=== PATIENT | female | born 1945 | race Caucasian/White ===

== ENCOUNTER 2018-01-25 20:15 | Emergency (ER) | payer OTHER ==
[~2018-01-25] VITALS: Ht 162.6 cm; Wt 95.3 kg
[~2018-01-25 20:15] MED LIST: AMLO5TAB PO; CLOP75TA PO; LEVO500T6; LISINOPRIL; SIMV20TA1 PO
[2018-01-25 20:25] VITALS: BP 113/64
--- NOTE | 2018-01-25 20:32 | NUR ---
72/F C/O 06/05 SHARP LEFT LATERAL LEG PAIN, NONTRAUMATIC, DENIES INJURY, STATES " I WOKE UP AND MY LEG STARTED HURTING". REPORTS NUMBNESS AND TINGLING, MINIMAL SWELLING NOTED, NO REDNESS, +PMSC PMH: BLOOD CLOTS, HTN, HLD
--- NOTE | 2018-01-25 20:32 | NUR ---
PT AMBULATED TO ER CHAIR E
--- NOTE | 2018-01-25 21:13 | NUR ---
PT MOVED TO BED 10
[2018-01-25] MEDS ORDERED: KETOROLAC 30 MG/ML VIAL IM ONE (22:05)
--- NOTE | 2018-01-25 22:30 | NUR ---
Patient discharged with v/s stable. Written and verbal after care instructions given and explained. Patient verbalized understanding. Ambulatory with steady gait. All questions addressed prior to discharge. Advised to follow up with PMD.
[2018-01-25 22:34] VITALS: BP 138/76
== END 2018-01-25 22:30 | disposition home or self-care (01) ==
LOC: MED 20:15
DX: I83.92 Asymptomatic varicose veins of left lower extremity (principal); I10 Essential (primary) hypertension; Z79.899 Other long term (current) drug therapy
CPT/HCPCS: 93971; 96372; 99284; J1885; Q0092

== ENCOUNTER 2018-07-17 19:31 | Emergency (ER) | payer MEDICARE, OTHER ==
[~2018-07-17] VITALS: Ht 162.6 cm; Wt 102.1 kg
[~2018-07-17 19:31] MED LIST changes: -LEVO500T6
[2018-07-17 19:59] VITALS: BP 134/90
--- NOTE | 2018-07-17 20:05 | NUR ---
PT AMBULATED TO ER BED 11
--- NOTE | 2018-07-17 20:06 | NUR ---
Report given to Nia LEON.
--- NOTE | 2018-07-17 20:07 | NUR ---
72/F came in c/o lower back pain worsened x 4 days. pt denies recent trauma/injury, denies peripheral numbness/tingling. Pt ambulated with steady gait to bed 11. PMH: arthritis, chronic pain, HTN, HLD
[2018-07-17] MEDS ORDERED: KETOROLAC 60 MG/2 ML VIAL IM ONE (20:25)
--- NOTE | 2018-07-17 22:26 | NUR ---
Patient discharged with v/s stable. Written and verbal after care instructions given and explained. Patient alert, oriented and verbalized understanding of instructions. Ambulatory with steady gait. All questions addressed prior to discharge. ID band removed. Patient advised to follow up with PMD. Rx of ultram given. Patient educated on indication of medication including possible reaction and side effects. Opportunity to ask questions provided and answered.
[2018-07-17 22:31] VITALS: BP 119/73
== END 2018-07-17 22:26 | disposition home or self-care (01) ==
LOC: MED 19:31
DX: M51.36 Other intervertebral disc degeneration, lumbar region (principal); I10 Essential (primary) hypertension; M81.0 Age-related osteoporosis without current pathological fracture; Z79.899 Other long term (current) drug therapy
CPT/HCPCS: 72131; 96372; 99284; J1885

== ENCOUNTER 2019-03-01 08:42 | Emergency (ER) | payer MEDICARE, OTHER ==
[~2019-03-01] VITALS: Ht 162.6 cm; Wt 99.8 kg
[~2019-03-01 08:42] MED LIST changes: -LISINOPRIL
--- NOTE | 2019-03-01 08:48 | NUR ---
PT AMBULATED TO ER BED 08
[2019-03-01 08:50] VITALS: BP 156/78
--- NOTE | 2019-03-01 09:04 | NUR ---
PT BIB SELF C/O PAINFUL RASH X2 WEEKS. PT REPORTS BEING DIAGNOSED WITH SHINGLES AT [place] 2 WEEKS AGO, RECIEVED MEDICATION TO TREAT, PT STATES THAT SHE FINISHED MEDICATION, DOES NOT REMEMBER NAME TO MEDICATION, AND REPORTS SHE IS STILL IN PAIN. BURNING/THROBING PAIN AT 10/10 FROM RASH THAT GOES FROM RT GROIN TO RT FLANK. VSS. ER MD TO SEE PT. MEDHX:SHINGLES, HTN, STENT RX:[id number]
[2019-03-01] MEDS ORDERED: hydrOXYzine HCL 25 MG TAB PO ONE (09:40)
[2019-03-01] MEDS ORDERED: DEXAMETHASONE 10 MG/ML VIAL IM ONE (09:40)
[2019-03-01] MEDS ORDERED: diphenhydrAMINE 50 MG/ML VIAL IM ONE (09:40)
--- NOTE | 2019-03-01 11:15 | NUR ---
Patient discharged with v/s stable. Written and verbal after care instructions given and explained. Patient alert, oriented and verbalized understanding of instructions. Wheel Chair Assisted with to car. All questions addressed prior to discharge. ID band removed. Patient advised to follow up with PMD. Rx of ATARAX, AND DEPAKOTE given. Patient educated on indication of medication including possible reaction and side effects. Opportunity to ask questions provided and answered.
[2019-03-01 11:33] VITALS: BP 137/59
== END 2019-03-01 11:15 | disposition home or self-care (01) ==
LOC: MED 08:42
DX: B02.29 Other postherpetic nervous system involvement (principal); I10 Essential (primary) hypertension; E78.5 Hyperlipidemia, unspecified; Z79.899 Other long term (current) drug therapy
CPT/HCPCS: 96372; 99283; J1100; J1200

== ENCOUNTER 2020-10-19 12:06 | Emergency (ER) | payer MEDICARE, OTHER ==
[~2020-10-19] VITALS: Ht 162.6 cm; Wt 95.3 kg
--- NOTE | 2020-10-19 12:21 | NUR ---
Patient transferred to [facility]. RN evaluating patient at bedside.
[2020-10-19 12:26] VITALS: BP 123/54
--- NOTE | 2020-10-19 12:26 | NUR ---
Dr. Calloway is evaluating the patient at bedside.
--- NOTE | 2020-10-19 12:32 | NUR ---
PT C/O GENERALIZED WEAKNESS, PRODUCTIVE COUGH WITH GREENISH PHLEGM FOR 4 DAYS. PT WAS SEEN IN [facility] AND DX WITH BRONCHITIS. PT HAS BEEN TX WITH AUGMENTIN FOR 4 DAYS. PT STATES NO IMPROVEMENT. OTHERWISE, DENIES FEVER, SOB, CP, N/V/D, OR SICK CONTACT. PMH: HTN
--- NOTE | 2020-10-19 13:34 | NUR ---
Dr. Harrison is evaluating the patient at bedside.
[2020-10-19 13:57] LABS: BASOPHILS # (AUTO) 0.1 K/uL (0.00-0.22); BASOPHILS % (AUTO) 0.8 % (0.0-2.0); EOSINOPHILS # (AUTO) 0.1 K/uL (0-0.4); EOSINOPHILS % (AUTO) 1.7 % (0.0-4.0); HEMATOCRIT 43.9 % (36-48); HEMOGLOBIN 14.6 g/dL (12.0-16.0); LYMPHOCYTES # (AUTO) 1.3 K/uL (2.5-16.5); LYMPHOCYTES % (AUTO) 19.4 % (20.5-51.1); MEAN CORPUSCULAR HEMOGLOBIN 30 pg (27-31); MEAN CORPUSCULAR HGB CONC 33 g/dL (33-37); MEAN CORPUSCULAR VOLUME 91.3 fL (80-94); MONOCYTES # (AUTO) 0.5 K/uL (0.8-1.0); NEUTROPHILS # (AUTO) 4.5 K/uL (1.8-7.7); NEUTROPHILS % (AUTO) 70.1 % (42.2-75.2); PLATELET COUNT (AUTO) 176 K/uL (140-450); RED BLOOD CELL COUNT(AUTO) 4.81 MIL/uL (4.20-5.40); RED CELL DISTRIBUTION WIDTH 13.2 % (11.6-13.7); WHITE BLOOD COUNT (AUTO) 6.5 K/uL (4.8-10.8)
--- NOTE | 2020-10-19 14:00 | NUR ---
COVID JESE & FLU SWAB COLLECTED.
--- NOTE | 2020-10-19 14:00 | NUR ---
Marcus alberto in [facility] - 10/19/20 at 1421 by [facility] DONOVAN SAWANT & MICHAEL LOPEZ.
[2020-10-19 14:42] LABS: PROTHROMBIN TIME 11.5 secs (10.8-13.4)
[2020-10-19 15:07] LABS: ALBUMIN 4.3 g/dL (3.4-5.0); ANION GAP 18.1 (8-16); ASPARTATE AMINOTRANSFERASE 44 U/L (15-37); CARBON DIOXIDE 23.8 mmol/L (21-32); CHLORIDE 104 mmol/L (98-107); CREATININE 0.9 mg/dL (0.6-1.3); GLUCOSE 85 mg/dL (74-106); POTASSIUM 3.9 mmol/L (3.5-5.1); SODIUM SERUM 142 mmol/L (136-145); TOTAL BILIRUBIN 1.5 mg/dL (0.0-1.0); UREA NITROGEN, BLOOD 17 mg/dL (7-18)
[2020-10-19 15:11] LABS: APPEARANCE,URINE CLEAR (CLEAR); BILIRUBIN,URINE NEGATIVE (NEGATIVE); BLOOD, URINE NEGATIVE (NEGATIVE); COLOR,URINE YELLOW (YELLOW); LEUKOCYTE ESTERASE ,URINE 1+ (NEGATIVE); NITRITE, URINE NEGATIVE (NEGATIVE); UGLUCOSE NEGATIVE (NEGATIVE)
[2020-10-19 15:24] LABS: RBC,URINE 0-5 /HPF (0-5)
[2020-10-19 15:39] VITALS: BP 138/56
--- NOTE | 2020-10-19 15:42 | NUR ---
Stable Pain free MD has reassessed and Dc'd home To exit
== END 2020-10-19 15:42 | disposition home or self-care (01) ==
LOC: MED 12:06
DX: J06.9 Acute upper respiratory infection, unspecified (principal); I11.0 Hypertensive heart disease with heart failure; Z79.899 Other long term (current) drug therapy; Z98.890 Other specified postprocedural states; Z20.828 Contact with and (suspected) exposure to other viral communicable diseases
CPT/HCPCS: 36415; 36600; 71045; 80053; 81001; 82803; 83605; 83880; 84484; 85025; 85610; 85730; 87040; 87086; 87804; 93005; 99285

== ENCOUNTER 2021-11-13 13:25 | Emergency (ER) | payer OTHER ==
[~2021-11-13] VITALS: Ht 162.6 cm; Wt 90.7 kg
[2021-11-13 15:24] VITALS: BP 127/70
--- NOTE | 2021-11-13 15:30 | NUR ---
TENT 4
[2021-11-13] MEDS ORDERED: ONDANSETRON 4 MG ODT PO ONE (16:05)
[2021-11-13] MEDS ORDERED: ACETAMINOPHEN 325 MG TAB PO ONE (16:05)
--- NOTE | 2021-11-13 16:38 | NUR ---
DONOVAN SAWANT COLLECTED AND HANDED TO [employer] [facility]
[2021-11-13 16:46] LABS: BASOPHILS % (AUTO) 0.6 % (0.0-2.0); EOSINOPHILS # (AUTO) 0.2 K/uL (0-0.4); EOSINOPHILS % (AUTO) 2.7 % (0.0-4.0); HEMATOCRIT 43.5 % (36-48); HEMOGLOBIN 14.5 g/dL (12.0-16.0); LYMPHOCYTES # (AUTO) 1.3 K/uL (2.5-16.5); LYMPHOCYTES % (AUTO) 19.7 % (20.5-51.1); MEAN CORPUSCULAR HEMOGLOBIN 30 pg (27-31); MEAN CORPUSCULAR HGB CONC 33 g/dL (33-37); MEAN CORPUSCULAR VOLUME 88.9 fL (80-94); MONOCYTES # (AUTO) 0.5 K/uL (0.8-1.0); MONOCYTES % (AUTO) 7.4 % (1.7-9.3); NEUTROPHILS # (AUTO) 4.5 K/uL (1.8-7.7); NEUTROPHILS % (AUTO) 69.6 % (42.2-75.2); PLATELET COUNT (AUTO) 173 K/uL (140-450); RED BLOOD CELL COUNT(AUTO) 4.89 MIL/uL (4.20-5.40); RED CELL DISTRIBUTION WIDTH 13.6 % (11.6-13.7); WHITE BLOOD COUNT (AUTO) 6.4 K/uL (4.8-10.8)
--- NOTE | 2021-11-13 16:55 | NUR ---
URINE SAMPLE COLLECTED AND HANDED TO [employer] [facility]
[2021-11-13 17:45] LABS: ANION GAP 14.7 (8-16); CARBON DIOXIDE 26.8 mmol/L (21-32); CHLORIDE 104 mmol/L (98-107); CREATININE 0.6 mg/dL (0.6-1.3); GLUCOSE 110 mg/dL (74-106); POTASSIUM 3.5 mmol/L (3.5-5.1); SODIUM SERUM 142 mmol/L (136-145); UREA NITROGEN, BLOOD 10 mg/dL (7-18)
[2021-11-13 17:52] LABS: ALBUMIN 3.9 g/dL (3.4-5.0); ASPARTATE AMINOTRANSFERASE 39 U/L (15-37); LIPASE 125 U/L (73-393); TOTAL BILIRUBIN 1.3 mg/dL (0.0-1.0)
[2021-11-13 18:24] LABS: APPEARANCE,URINE HAZY (CLEAR); COLOR,URINE YELLOW (YELLOW)
[2021-11-13 18:25] LABS: BILIRUBIN,URINE NEGATIVE (NEGATIVE); BLOOD, URINE NEGATIVE (NEGATIVE); LEUKOCYTE ESTERASE ,URINE TRACE (NEGATIVE); NITRITE, URINE NEGATIVE (NEGATIVE); UGLUCOSE NEGATIVE (NEGATIVE)
[2021-11-13 18:32] LABS: RBC,URINE NONE SEEN /HPF (0-5); WBC,URINE 60-80 /HPF (0-5)
[2021-11-13] MEDS ORDERED: CEPH-588 PO (19:14)
[2021-11-13] MEDS ORDERED: ONDA-188 SL (19:14)
[2021-11-13] MEDS ORDERED: cefTRIAXone 1,000 MG in LIDOCAINE MPF 1% 2.1 ML IM ONE (19:20)
[2021-11-13] MEDS ORDERED: cefTRIAXone 1,000 MG VIAL ONE (19:34)
[2021-11-13] MEDS ORDERED: LIDOCAINE MPF 1% 5 ML ONE (19:34)
[2021-11-13 19:43] VITALS: BP 127/70
--- NOTE | 2021-11-13 19:43 | NUR ---
Patient discharged with v/s stable. Written and verbal after care instructions given and explained. Patient alert, oriented and verbalized understanding of instructions. Ambulatory with steady gait. All questions addressed prior to discharge. ID band removed. Patient advised to follow up with PMD. Rx of KEFLEX, ZOFRAN given. Patient educated on indication of medication including possible reaction and side effects. Opportunity to ask questions provided and answered.
== END 2021-11-13 19:43 | disposition home or self-care (01) ==
LOC: MED 13:25
DX: N39.0 Urinary tract infection, site not specified (principal); Z20.822 Contact with and (suspected) exposure to COVID-19; R19.7 Diarrhea, unspecified; R11.0 Nausea; R51.9 Headache, unspecified; I10 Essential (primary) hypertension; E78.5 Hyperlipidemia, unspecified; Z79.899 Other long term (current) drug therapy
CPT/HCPCS: 36415; 71045; 80053; 81001; 83690; 84484; 85025; 87086; 87426; 93005; 96372; 99285; J0696; J2001; Q0162

== ENCOUNTER 2022-01-26 15:58 | Emergency (ER) | payer OTHER ==
[~2022-01-26] VITALS: Ht 157.5 cm; Wt 95.3 kg
[~2022-01-26 15:58] MED LIST changes: +CEPH-588 PO; +ONDA-188 SL
[2022-01-26 16:06] VITALS: BP 159/74
--- NOTE | 2022-01-26 16:14 | NUR ---
PATIENT AMBULATED TO BED 11.
[2022-01-26] MEDS ORDERED: ONDANSETRON 4 MG/2 ML VIAL IVP ONE (16:55)
[2022-01-26] MEDS ORDERED: NACL 0.9% 1,000 ML IV ONE (16:55)
--- NOTE | 2022-01-26 17:05 | NUR ---
Blood jose and sent to lab.
[2022-01-26 17:58] LABS: BASOPHILS % (AUTO) 0.7 % (0.0-2.0); EOSINOPHILS # (AUTO) 0.1 K/uL (0-0.4); HEMATOCRIT 38.2 % (36-48); HEMOGLOBIN 12.6 g/dL (12.0-16.0); LYMPHOCYTES # (AUTO) 1.1 K/uL (2.5-16.5); LYMPHOCYTES % (AUTO) 23.9 % (20.5-51.1); MEAN CORPUSCULAR HEMOGLOBIN 30 pg (27-31); MEAN CORPUSCULAR HGB CONC 33 g/dL (33-37); MONOCYTES # (AUTO) 0.5 K/uL (0.8-1.0); MONOCYTES % (AUTO) 9.8 % (1.7-9.3); NEUTROPHILS # (AUTO) 2.9 K/uL (1.8-7.7); NEUTROPHILS % (AUTO) 62.6 % (42.2-75.2); PLATELET COUNT (AUTO) 141 K/uL (140-450); RED BLOOD CELL COUNT(AUTO) 4.15 MIL/uL (4.20-5.40); RED CELL DISTRIBUTION WIDTH 15.3 % (11.6-13.7); WHITE BLOOD COUNT (AUTO) 4.7 K/uL (4.8-10.8)
[2022-01-26 18:03] LABS: APPEARANCE,URINE CLEAR (CLEAR); BILIRUBIN,URINE NEGATIVE (NEGATIVE); BLOOD, URINE TRACE-L (NEGATIVE); COLOR,URINE YELLOW (YELLOW); LEUKOCYTE ESTERASE ,URINE 1+ (NEGATIVE); NITRITE, URINE POSITIVE (NEGATIVE); UGLUCOSE NEGATIVE (NEGATIVE)
[2022-01-26 18:06] LABS: RBC,URINE 20-50 /HPF (0-5)
[2022-01-26 18:24] LABS: CREATININE 0.8 mg/dL (0.6-1.3); GLUCOSE 103 mg/dL (74-106); POTASSIUM 3.9 mmol/L (3.5-5.1); SODIUM SERUM 142 mmol/L (136-145); TOTAL BILIRUBIN 1.1 mg/dL (0.0-1.0); UREA NITROGEN, BLOOD 18 mg/dL (7-18)
[2022-01-26 18:27] LABS: ALBUMIN 3.7 g/dL (3.4-5.0); ANION GAP 13.9 (8-16); ASPARTATE AMINOTRANSFERASE 16 U/L (15-37); CHLORIDE 107 mmol/L (98-107)
[2022-01-26] MEDS ORDERED: SULF-59 PO (19:32)
--- NOTE | 2022-01-26 19:39 | NUR ---
Pt report given to TYREE LEON. Transfer of care at this time.
--- NOTE | 2022-01-26 19:40 | NUR ---
PT AMBULATED WITH PERSONAL WALKER TO THE RESTROOM INDENPENDENTLY. FULL WEIGHT BEARING. NO COMPLIANTS OF DIZZINESS. NO SIGN OF WEAKNESS.
[2022-01-26 20:11] VITALS: BP 139/66
--- NOTE | 2022-01-26 20:15 | NUR ---
Patient discharged with v/s stable. Written and verbal after care instructions given and explained. Patient alert, oriented and verbalized understanding of instructions. Ambulatory with steady gait. All questions addressed prior to discharge. ID band removed. Patient advised to follow up with PMD. Rx of BACTRIM given. Patient educated on indication of medication including possible reaction and side effects. Opportunity to ask questions provided and answered. COPIES OF LAB RESULT GIVEN TO PT.
== END 2022-01-26 20:15 | disposition home or self-care (01) ==
LOC: MED 15:58
DX: N39.0 Urinary tract infection, site not specified (principal); R53.1 Weakness; R11.0 Nausea; R42 Dizziness and giddiness; I10 Essential (primary) hypertension; E78.5 Hyperlipidemia, unspecified; Z79.899 Other long term (current) drug therapy
CPT/HCPCS: 36415; 80053; 81001; 84484; 85025; 87086; 96361; 96374; 99283; J2405; J7030; 93005

== ENCOUNTER 2022-08-12 16:00 | Emergency (ER) | payer OTHER ==
[~2022-08-12] VITALS: Ht 162.6 cm; Wt 96.2 kg
[~2022-08-12 16:00] MED LIST changes: +SIMV-372 PO; -SIMV20TA1 PO; +SULF-59 PO
[2022-08-12 16:35] VITALS: BP 152/76
--- NOTE | 2022-08-12 17:48 | NUR ---
Patient was wheelchair assisted to bed 3.
--- NOTE | 2022-08-12 17:51 | NUR ---
Lab at bedside.
--- NOTE | 2022-08-12 17:52 | NUR ---
Dr. Valdez evaluating patient at bedside.
--- NOTE | 2022-08-12 17:54 | NUR ---
X-Ray at bedside.
[2022-08-12] MEDS ORDERED: ONDANSETRON 4 MG/2 ML VIAL IVP ONE (17:55)
[2022-08-12] MEDS ORDERED: NACL 0.9% 1,000 ML IV ONE (17:55)
[2022-08-12 18:07] LABS: BASOPHILS # (AUTO) 0.1 K/uL (0.00-0.22); EOSINOPHILS # (AUTO) 0.2 K/uL (0-0.4); HEMATOCRIT 39.5 % (36-48); HEMOGLOBIN 13.4 g/dL (12.0-16.0); LYMPHOCYTES # (AUTO) 1.2 K/uL (2.5-16.5); LYMPHOCYTES % (AUTO) 24.1 % (20.5-51.1); MEAN CORPUSCULAR HEMOGLOBIN 32 pg (27-31); MEAN CORPUSCULAR HGB CONC 34 g/dL (33-37); MEAN CORPUSCULAR VOLUME 93.5 fL (80-94); MONOCYTES # (AUTO) 0.4 K/uL (0.8-1.0); MONOCYTES % (AUTO) 8.1 % (1.7-9.3); NEUTROPHILS # (AUTO) 3.3 K/uL (1.8-7.7); NEUTROPHILS % (AUTO) 63.8 % (42.2-75.2); PLATELET COUNT (AUTO) 147 K/uL (140-450); RED BLOOD CELL COUNT(AUTO) 4.22 MIL/uL (4.20-5.40); RED CELL DISTRIBUTION WIDTH 13.8 % (11.6-13.7); WHITE BLOOD COUNT (AUTO) 5.2 K/uL (4.8-10.8)
--- NOTE | 2022-08-12 18:25 | NUR ---
Attempted to start IV unsuccesful, RN called for putting in IV.
[2022-08-12 18:34] LABS: ALBUMIN 3.8 g/dL (3.4-5.0); ANION GAP 13.8 (8-16); ASPARTATE AMINOTRANSFERASE 17 U/L (15-37); CARBON DIOXIDE 25.5 mmol/L (21-32); CHLORIDE 105 mmol/L (98-107); GLUCOSE 114 mg/dL (74-106); POTASSIUM 4.3 mmol/L (3.5-5.1); SODIUM SERUM 140 mmol/L (136-145); TOTAL BILIRUBIN 1.1 mg/dL (0.0-1.0); UREA NITROGEN, BLOOD 16 mg/dL (7-18)
[2022-08-12 18:48] LABS: BILIRUBIN,URINE NEGATIVE (NEGATIVE); BLOOD, URINE NEGATIVE (NEGATIVE); COLOR,URINE YELLOW (YELLOW); LEUKOCYTE ESTERASE ,URINE TRACE (NEGATIVE); NITRITE, URINE NEGATIVE (NEGATIVE); PH,URINE 5.5 (5.0-9.0); UGLUCOSE NEGATIVE (NEGATIVE)
[2022-08-12 19:03] LABS: CREATININE 0.9 mg/dL (0.6-1.3)
--- NOTE | 2022-08-12 19:22 | NUR ---
Report given to EDWARD Rodríguez for transfer of care.
[2022-08-12 19:23] LABS: APPEARANCE,URINE HAZY (CLEAR)
[2022-08-12 19:31] LABS: RBC,URINE NONE SEEN /HPF (0-5); WBC,URINE 0-5 /HPF (0-5)
[2022-08-12 20:33] VITALS: BP 146/74
--- NOTE | 2022-08-12 20:35 | NUR ---
The patient's care was reviewed and supervised by Carmencita Galan RN.
== END 2022-08-12 20:25 | disposition home or self-care (01) ==
LOC: MED 16:00
DX: R53.1 Weakness (principal); I10 Essential (primary) hypertension; I25.10 Atherosclerotic heart disease of native coronary artery without angina pectoris; Z79.899 Other long term (current) drug therapy; Z98.890 Other specified postprocedural states
CPT/HCPCS: 36415; 71045; 80053; 81001; 84484; 85025; 87086; 93005; 96361; 96374; 99285; J2405; J7030; Q0092

== ENCOUNTER 2023-02-17 17:52 | Emergency (ER) | payer OTHER ==
[~2023-02-17] VITALS: Ht 162.6 cm; Wt 90.7 kg
[2023-02-17 18:15] VITALS: BP 136/76
--- NOTE | 2023-02-17 18:19 | NUR ---
COUGH, CONGESTION, FEVER X 2 WEEKS. RECENTLY FINISHED AN ANTIBIOTIC COURSE BUT WITH NO IMPROVEMENT. DENIES SICK CONTACTS, DENIES RECENT TRAVEL. PMH: CARDIAC STENT, HTN, HIGH CHOLESTEROL
--- NOTE | 2023-02-17 20:10 | NUR ---
PT TAKEN TO XRAY
[2023-02-17] MEDS ORDERED: AZIT250T11 PO (21:39)
[2023-02-17] MEDS ORDERED: BENZ100C6 PO (21:39)
[2023-02-17] MEDS ORDERED: CEFP200T20 PO (21:55)
[2023-02-17] MEDS ORDERED: ACET325C8 PO (22:03)
--- NOTE | 2023-02-17 23:45 | NUR ---
PT CLEARED FOR D/C BY DR. TESFAYE. AT TIME OF DISCHARGE PT LEFT W/O INSTRUCTIONS.
== END 2023-02-17 23:45 | disposition home or self-care (01) ==
LOC: MED 17:52
DX: J20.9 Acute bronchitis, unspecified (principal); R11.10 Vomiting, unspecified; I10 Essential (primary) hypertension; Z95.5 Presence of coronary angioplasty implant and graft; Z79.899 Other long term (current) drug therapy; Z79.2 Long term (current) use of antibiotics; Z79.01 Long term (current) use of anticoagulants
CPT/HCPCS: 71045; 99283

== ENCOUNTER 2024-08-14 16:20 | Inpatient (IN) | payer MEDICARE, OTHER ==
[~2024-08-14] VITALS: Ht 162.6 cm; Wt 81.6 kg
[~2024-08-14 16:20] MED LIST changes: +ACET325C8 PO; +AZIT250T11 PO; +BENZ100C6 PO; +CEFP200T20 PO
[2024-08-14 16:35] VITALS: BP 149/72; PULSE 82; RESP 18; TEMP 97.8; O2SAT 98
[2024-08-14] MEDS: HYDROcodone/APAP 5/325 MG 1 TAB TAB PO ONE ×2 (17:20→22:06)
[2024-08-14] MEDS: fentaNYL citrate 0.05 MG/ML VIAL IM ONE (20:43)
[2024-08-14 21:32] LABS: BASOPHILS % (AUTO) 0.6 % (0.0-2.0); EOSINOPHILS # (AUTO) 0.1 K/uL (0-0.4); HEMATOCRIT 41.6 % (36-48); HEMOGLOBIN 13.8 g/dL (12.0-16.0); LYMPHOCYTES # (AUTO) 1.3 K/uL (2.5-16.5); LYMPHOCYTES % (AUTO) 28.1 % (20.5-51.1); MEAN CORPUSCULAR HEMOGLOBIN 31 pg (27-31); MEAN CORPUSCULAR HGB CONC 33 g/dL (33-37); MEAN CORPUSCULAR VOLUME 92.9 fL (80-94); MONOCYTES # (AUTO) 0.3 K/uL (0.8-1.0); MONOCYTES % (AUTO) 6.8 % (1.7-9.3); NEUTROPHILS # (AUTO) 2.7 K/uL (1.8-7.7); NEUTROPHILS % (AUTO) 61.5 % (42.2-75.2); PLATELET COUNT (AUTO) 144 K/uL (140-450); RED BLOOD CELL COUNT(AUTO) 4.48 MIL/uL (4.20-5.40); RED CELL DISTRIBUTION WIDTH 14.1 % (11.6-13.7); WHITE BLOOD COUNT (AUTO) 4.5 K/uL (4.8-10.8)
[2024-08-14 21:45] LABS: ANION GAP 14.8 (8-16); CALCIUM 9.5 mg/dL (8.5-10.1); CARBON DIOXIDE 25.6 mmol/L (21-32); CHLORIDE 103 mmol/L (98-107); CREATININE 0.8 mg/dL (0.6-1.3); GLUCOSE 125 mg/dL (74-106); POTASSIUM 4.4 mmol/L (3.5-5.1); SODIUM SERUM 139 mmol/L (136-145); UREA NITROGEN, BLOOD 17 mg/dL (7-18)
[2024-08-14] MEDS ORDERED: LORazepam 1 MG TAB PO PRN (22:25)
[2024-08-14] MEDS ORDERED: ZOLPIDEM 5 MG TAB PO PRN (22:25)
[2024-08-14] MEDS ORDERED: ONDANSETRON 4 MG/2 ML VIAL IVP PRN (22:25)
[2024-08-15] MEDS ORDERED: AMLO10TA89 PO (06:38)
[2024-08-15] MEDS ORDERED: SIMV-30 PO (06:38)
[2024-08-15] MEDS ORDERED: PANT40EC56 PO (06:38)
[2024-08-15] MEDS ORDERED: CLOP75TA55 PO (06:39)
[2024-08-15 07:55] VITALS: PULSE 71; RESP 16; O2SAT 94
[2024-08-15] MEDS: ENOXAPARIN 40 MG/0.4 ML SYR SUBQ SCH (08:05)
[2024-08-15] MEDS: CYCLOBENZAPRINE 10 MG TAB PO SCH (09:12)
[2024-08-15] MEDS: HYDROcodone/APAP 10/325 MG 1 TAB TAB PO PRN (12:08)
[2024-08-15 16:00] VITALS: BP 112/46; PULSE 71; RESP 18; TEMP 97.7; O2SAT 96
[2024-08-15 20:00] VITALS: PULSE 71; RESP 18; O2SAT 96
[2024-08-16] VITALS: BP 115/60; PULSE 69; RESP 18; TEMP 98; O2SAT 97
[2024-08-16 08:00] VITALS: BP 129/46; PULSE 67; RESP 19; TEMP 96.9; O2SAT 92
[2024-08-16 16:00] VITALS: BP 131/46; PULSE 69; RESP 18; TEMP 96.9; O2SAT 95
[2024-08-16 20:00] VITALS: PULSE 53; RESP 18; O2SAT 93
[2024-08-17 04:00] VITALS: BP 112/46; PULSE 71; RESP 19; TEMP 97.9; O2SAT 93
[2024-08-17] MEDS: ACETAMINOPHEN 325 MG TAB PO PRN (05:44)
[2024-08-17 08:00] VITALS: BP 125/63; PULSE 70; RESP 20; TEMP 96.8; O2SAT 95
[2024-08-17 16:00] VITALS: BP 107/54; PULSE 75; RESP 20; TEMP 97.4; O2SAT 96
[2024-08-17 20:00] VITALS: PULSE 75; RESP 18; O2SAT 96
[2024-08-18] VITALS: BP 110/60; PULSE 75; RESP 18; TEMP 98.2; O2SAT 96
[2024-08-18 08:00] VITALS: BP 147/84; PULSE 89; RESP 19; TEMP 98; O2SAT 96
[2024-08-18] MEDS: HYDROcodone/APAP 5/325 MG 1 TAB TAB PO PRN (09:13)
[2024-08-18 10:10] LABS: BASOPHILS % (AUTO) 0.6 % (0.0-2.0); EOSINOPHILS # (AUTO) 0.2 K/uL (0-0.4); EOSINOPHILS % (AUTO) 5.2 % (0.0-4.0); HEMATOCRIT 40.1 % (36-48); HEMOGLOBIN 13.6 g/dL (12.0-16.0); LYMPHOCYTES # (AUTO) 0.9 K/uL (2.5-16.5); LYMPHOCYTES % (AUTO) 22.8 % (20.5-51.1); MEAN CORPUSCULAR HEMOGLOBIN 32 pg (27-31); MEAN CORPUSCULAR HGB CONC 34 g/dL (33-37); MEAN CORPUSCULAR VOLUME 93.8 fL (80-94); MONOCYTES # (AUTO) 0.3 K/uL (0.8-1.0); MONOCYTES % (AUTO) 7.1 % (1.7-9.3); NEUTROPHILS # (AUTO) 2.5 K/uL (1.8-7.7); NEUTROPHILS % (AUTO) 64.3 % (42.2-75.2); PLATELET COUNT (AUTO) 130 K/uL (140-450); RED BLOOD CELL COUNT(AUTO) 4.28 MIL/uL (4.20-5.40); RED CELL DISTRIBUTION WIDTH 13.7 % (11.6-13.7); WHITE BLOOD COUNT (AUTO) 3.8 K/uL (4.8-10.8)
[2024-08-18 10:22] LABS: ANION GAP 10.1 (8-16); CHLORIDE 100 mmol/L (98-107); CREATININE 0.9 mg/dL (0.6-1.3); GLUCOSE 178 mg/dL (74-106); POTASSIUM 4.1 mmol/L (3.5-5.1); SODIUM SERUM 137 mmol/L (136-145); UREA NITROGEN, BLOOD 16 mg/dL (7-18)
[2024-08-18 10:29] LABS: CARBON DIOXIDE 30.8 mmol/L (21-32)
[2024-08-18] MEDS ORDERED: CYCL-657 PO (11:33)
[2024-08-18] MEDS ORDERED: ACET325C8 PO (11:33)
[2024-08-18 11:37] VITALS: BP 147/84; PULSE 89; RESP 19; TEMP 98
== END 2024-08-18 13:05 | disposition home health service (06) | DRG 544 ==
LOC: MED 16:20 → MTU 22:27 → OBSVTOIN 22:28 → MTU 08-15 05:12 → OBSVTOIN 08-15 16:06 → INTOOBSV 08-15 16:06 → MTU 08-18 01:27
PROVIDERS: ADMIT Student in an Organized Health Care Education/Training Program; ATTEND Student in an Organized Health Care Education/Training Program
DX: M48.56XA Collapsed vertebra, not elsewhere classified, lumbar region, initial encounter for fracture (principal); E78.5 Hyperlipidemia, unspecified; I10 Essential (primary) hypertension; M81.8 Other osteoporosis without current pathological fracture; Z79.899 Other long term (current) drug therapy; Z95.5 Presence of coronary angioplasty implant and graft
CPT/HCPCS: 36415; 72110; 73502; 80048; 85025; 87081; 96372; 97116; 97163-GP; 97530; 99285; G0378; J1650; J3010